=== PATIENT | female | born 1985 | race Caucasian/White ===

== ENCOUNTER 2017-02-15 08:13 | Inpatient (IN) | payer OTHER ==
[2017-02-15] VITALS (20 sets, daily range): BP systolic 96–154; BP diastolic 57–94
[~2017-02-15] VITALS: Ht 162.6 cm; Wt 70.0 kg
[~2017-02-15 08:13] MED LIST: ASPIR 8181 M1 PO; BREAST PUMP MC; DEXAMETHASONE0.5 MG PO; ENDOCET 5-3251 EACH PO; IBUPROFEN800 MG PO; PLAQUENIL200 MG PO; PRENATAL TABLE1 EAC3 PO
[2017-02-15 09:47] LABS: EOSINOPHIL (%) 2.1 % (0-5); EOSINOPHIL COUNT 0.3 K/uL (0-0.3); HEMATOCRIT 33.9 % (36.0-46.0); IMMATURE GRANULOCYTE (%) 0.9 % (0.0-0.7); IMMATURE GRANULOCYTE COUNT 0.1 K/uL; INSTRUMENT ABS NEUTROPHIL CT 10.1 K/uL; LYMPHOCYTE COUNT 1.7 K/uL (1.0-2.8); MCH 27.1 PG (29.0-34.0); MCHC 32.2 G/DL (30.0-36.0); MCV 84.3 FL (83-99); MEAN PLAT.VOLUME 11.4 uM^3 (9.5-12.4); MONOCYTE (%) 6.2 % (3-12); MONOCYTE COUNT 0.8 K/uL (0-0.8); NEUTROPHIL (%) 77.5 % (45-76); NEUTROPHIL COUNT 10.1 K/uL (1.8-6.4); PLATELET COUNT 200 K/uL (156-360); RBC DIS.WIDTH-CV 12.9 % (11.8-14.6); RBC DIS.WIDTH-SD 39.5 % (39-53); RED BLOOD COUNT 4.02 M/uL (3.80-5.20)
[2017-02-15 09:57] LABS: CHLORIDE 108 mEq/L (99-109); POTASSIUM 3.9 mEq/L (3.7-5.4); SODIUM 138 mEq/L (136-147)
[2017-02-15 10:00] LABS: GLUCOSE 78 mg/dL (70-99)
[2017-02-15 10:01] LABS: ANION GAP 8 MEQ/L (2-14)
[2017-02-15 10:02] LABS: TOTAL BILIRUBIN 0.2 mg/dL (0.0-1.0)
[2017-02-15 10:03] LABS: ALKALINE PHOSPHATASE 152 IU/L (3-129); GFR ESTIMATE (CALCULATED) > 59 mL/min/
[2017-02-15 10:04] LABS: UREA NITROGEN (BUN) 7 mg/dL (9-23)
[2017-02-15] MEDS ORDERED: MOTRIN800 MG PO (19:15)
[2017-02-16 07:40] VITALS: BP 138/61
[2017-02-16 15:19] VITALS: BP 118/74
[2017-02-16 22:26] VITALS: BP 131/72
[2017-02-17 07:29] VITALS: BP 122/80
== END 2017-02-17 13:10 | disposition home or self-care (01) | DRG 775 ==
LOC: LDRP-OP 08:13 → 2WEST 08:14 → LDRP-OP 04-08 14:28
PROVIDERS: Midwife
PROC: 10H073Z Insertion of Monitoring Electrode into Products of Conception, Via Natural or Artificial Opening (ICD-10-PCS; principal; 2017-02-15)
PROC: 3E0S3CZ (ICD-10-PCS; principal; 2017-02-15)
PROC: 10H07YZ Insertion of Other Device into Products of Conception, Via Natural or Artificial Opening (ICD-10-PCS; principal; 2017-02-15)
PROC: 10E0XZZ Delivery of Products of Conception, External Approach (ICD-10-PCS; principal; 2017-02-15)
PROC: 00HU33Z Insertion of Infusion Device into Spinal Canal, Percutaneous Approach (ICD-10-PCS; principal; 2017-02-15)
DX: O42.913 Preterm premature rupture of membranes, unspecified as to length of time between rupture and onset of labor, third trimester (principal); O60.14X0 Preterm labor third trimester with preterm delivery third trimester, not applicable or unspecified; O99.344 Other mental disorders complicating childbirth; F41.0 Panic disorder [episodic paroxysmal anxiety]; O99.824 Streptococcus B carrier state complicating childbirth; Z3A.36 36 weeks gestation of pregnancy; Z37.0 Single live birth; Z79.52 Long term (current) use of systemic steroids; O75.89 Other specified complications of labor and delivery; M35.9 Systemic involvement of connective tissue, unspecified; O69.1XX0 Labor and delivery complicated by cord around neck, with compression, not applicable or unspecified; O76 Abnormality in fetal heart rate and rhythm complicating labor and delivery
CPT/HCPCS: 80053; 85025; C1755; J2540; J3010; J7120; J8540